=== PATIENT | female | born 1965 ===

== ENCOUNTER 2018-07-16 13:43 | Observation (INO) ==
[2018-07-16 15:16] LABS: Baso % (Auto) 0.6 % (0.0-2.0); Eos # (Auto) 0.1 th/mm3 (0.0-0.4); Hematocrit 37.7 % (35.0-46.0); Hemoglobin 12.6 gm/dL (11.6-15.3); Lymph # (Auto) 1.2 th/mm3 (1.0-4.8); Lymph % (Auto) 15.3 % (9.0-44.0); Mean Corpuscular HGB Conc 33.4 % (32.0-36.0); Mean Corpuscular Hemoglobin 32.5 pg (27.0-34.0); Mean Corpuscular Volume 97.1 fL (80.0-100.0); Mono # (Auto) 0.5 th/mm3 (0.0-0.9); Mono % (Auto) 6.7 % (0.0-8.0); Neut # (Auto) 5.9 th/mm3 (1.8-7.7); Neut % (Auto) 76.4 % (16.0-70.0); Platelet Count 256 th/mm3 (150-450); Red Blood Count 3.88 mil/mm3 (4.00-5.30); Red Cell Distribution Width 13.4 % (11.6-17.2); White Blood Count 7.7 th/mm3 (4.0-11.0)
--- NOTE | 2018-07-16 15:40 | ED ---
HPI General Chief Complaint: Psychiatric Symptoms Stated Complaint: Psych Eval Time Seen by Provider: 07/16/18 14:59 Source: patient Mode of arrival: other Limitations: no limitations History of Present Illness HPI Narrative: 52-year-old female with a histroy of ESRD on HD, HTN, Breast CA s /p mastectomy presents to the emergency department for evaluation as a Phillips act after voluntary stopping her dialysis treatment for 2 weeks. According to the Phillips Act she says she 'does not want to be a burden and does not want to live anymore'. Says it is 'her choice' and does not believe she needs to consult her specialists. Her previous PCP was Dr. Magana. Dr. Rodriguez was her intranet developer. Denies intention of actually harming herself. Denies illicit drug use. MD complaint: other Duration: constant History of same: No Relieving factors: none Exacerbating factors: none Context: significant life stressor Related Data Home Medications Medication Instructions Recorded Confirmed anastrozole 1 mg PO DAILY 07/16/18 07/16/18 Allergies Allergy/AdvReac Type Severity Reaction Status Date / Time haloperidol AdvReac Mild MUSCLE Unverified 07/01/17 14:52 SPASMS TO UNK CLASS OF ANTIPSYCHOTICS olanzapine AdvReac Mild MUSCLE Unverified 07/01/17 14:52 SPASMS TO UNK CLASS OF ANTIPSYCHOTICS quetiapine AdvReac Mild MUSCLE Unverified 07/01/17 14:52 SPASMS TO UNK CLASS OF ANTIPSYCHOTICS Review of Systems ROS: all other systems reviewed are negative [facility] Medical History Medical History Breast cancer (Acute) Dialysis patient (Acute) Renal disease (Acute) Surgical History Surgical History History of mastectomy (Acute) History of surgery on arm (Acute) Social History Social History Substance History: No History of Abuse Second Hand Smoke Exposure: Yes Smoking Status: Current every day smoker Tobacco Type: Cigarettes How Often Do You Have a Drink Containing Alcohol: Never Recent Travel in [place] within the Last 8 Weeks: No Recent Out of Country Travel within the Last 8 Weeks: No Immunization History Tetanus Immunization: Unsure Hx Influenza Vaccine This Season: Yes Exam Narrative Exam Narrative: GENERAL: WD, WN in NAD SKIN: Focused skin assessment warm/dry. HEAD: Atraumatic. Normocephalic. EYES: Pupils equal and round. No scleral icterus. No injection or drainage. ENT: No nasal bleeding or discharge. Mucous membranes pink and moist. NECK: Trachea midline. No JVD. CARDIOVASCULAR: Regular rate and rhythm. No murmur appreciated. RESPIRATORY: No accessory muscle use. Clear to auscultation. Breath sounds equal bilaterally. GASTROINTESTINAL: Abdomen soft, non-tender, nondistended. Hepatic and splenic margins not palpable. MUSCULOSKELETAL: No obvious deformities. No clubbing. No cyanosis. No edema. NEUROLOGICAL: Awake and alert. No obvious cranial nerve deficits. Motor grossly within normal limits. Normal speech. PSYCHIATRIC: Appropriate mood and affect; insight and judgment normal. Course Initial Documented Vital Signs Temperature 98.9 F 07/16/18 14:07 Pulse Rate 103 H 07/16/18 14:07 Respiratory Rate 16 07/16/18 14:07 Blood Pressure 119/88 07/16/18 14:07 Pulse Oximetry 100 07/16/18 14:07 Last Documented Vital Signs Temperature 98.1 F 07/17/18 04:35 Pulse Rate 84 07/17/18 04:35 Respiratory Rate 18 07/17/18 04:35 Blood Pressure 112/74 07/17/18 04:35 Pulse Oximetry 99 07/17/18 04:35 Medical Decision Making MDM Narrative Medical decision making narrative: 52y female presents to the ED as a BA with a reluctance to continue HD. Vital signs stable. Labs are stable. Surprisingly, her electrolytes are stable and her kidney function is stable. Pt is medically cleared to see psych. Palliative Care consult placed at the recommendation of my attending. I took over patient at 11:00 AM on 07/17/2018. Patient apparently was deemed capable of making her own decisions by the psychiatrist Dr. Grissom. Patient still somewhat altered. Apparently patient was sent back to the medical side secondary to lifting the Phillips act but patient having abnormal labs including possible UTI with what appears to be kidney dysfunction. Per the report I was given Dr. Grissom recommended that if the patient did wanted to consult with end-of-life like palliative care they could do this. At this time patient does appear to be somewhat altered. Cannot assess whether this is true psychiatric or UTI related. Because we cannot completely rule this out I do recommend admission for further evaluation and possible palliative care consult as well but mainly to treat with antibiotics and assess her kidney function as she could require dialysis. Her labs yesterday were good. Discussed case with my attending Dr Gardiner who agrees with plan. Case discussed with Dr. Chinchilla who agreed to admission to her service. Medical Screen Exam Complete: Yes Emergency Medical Condition: Yes Differential Diagnosis Differential Diagnosis: suicidal ideations, depression, adjustment disorder Lab Data Result diagrams: 07/16/18 14:08 07/16/18 14:08 Lab Results 07/16/18 07/16/18 07/16/18 Range/Units 14:08 14:08 14:08 WBC 7.7 (4.0-11.0) th/mm3 RBC 3.88 L (4.00-5.30) mil/mm3 Hgb 12.6 (11.6-15.3) gm/dL Hct 37.7 (35.0-46.0) % MCV 97.1 (80.0-100.0) fL MCH 32.5 (27.0-34.0) pg MCHC 33.4 (32.0-36.0) % RDW 13.4 (11.6-17.2) % Plt Count 256 (150-450) th/mm3 MPV 8.0 (7.0-11.0) fL Neut % (Auto) 76.4 H (16.0-70.0) % Lymph % (Auto) 15.3 (9.0-44.0) % Sutter % (Auto) 6.7 (0.0-8.0) % Eos % (Auto) 1.0 (0.0-4.0) % Baso % (Auto) 0.6 (0.0-2.0) % Neut # (Auto) 5.9 (1.8-7.7) th/mm3 Lymph # (Auto) 1.2 (1.0-4.8) th/mm3 Sutter # (Auto) 0.5 (0.0-0.9) th/mm3 Eos # (Auto) 0.1 (0.0-0.4) th/mm3 Baso # (Auto) 0.0 (0.0-0.2) th/mm3 WBC Differential . Differential Comment Auto diff final Sodium 140 (136-145) meq/L Potassium 4.6 (3.5-5.1) meq/L Chloride 110 H (98-107) meq/L Carbon Dioxide 21.0 (21.0-32.0) meq/L Anion Gap 9 (5-15) meq/L BUN 44 H (7-18) mg/dL Creatinine 4.03 H (0.50-1.00) mg/dL Estimated GFR 12 L (>89) mL/min Random Glucose 127 H (74-106) mg/dL Calcium 8.5 (8.5-10.1) mg/dL Total Bilirubin 0.2 (0.2-1.0) mg/dL AST 12 L (15-37) U/L ALT 17 (10-53) U/L Alkaline Phosphatase 172 H (45-117) U/L Total Creatine Kinase 55 (26-192) U/L Total Protein 7.2 (6.4-8.2) g/dL Albumin 3.3 L (3.4-5.0) g/dL TSH 1.130 (0.358-3.740) uIU/mL Urine Color (Yellw/Straw) Urine Clarity (Clear) Urine pH (5.0-8.5) Ur Specific [place] (1.002-1.035) Urine Protein (Neg-Trace) mg/dL Urine Glucose (UA) (Negative) mg/dL Urine Ketones (Negative) mg/dL Urine Occult Blood (Negative) Urine Nitrate (Negative) Urine Bilirubin (Negative) Urine Urobilinogen (Less than 2) mg/dL Ur Leukocyte Esterase (Negative) Urine RBC (0-3) /hpf Urine WBC (0-5) /hpf Ur Squamous Epith Cells (0-5) /hpf Amorphous Sediment (None) /hpf Urine Bacteria (None) /hpf Urine Mucus (Occasional) /lpf Micro UA Comment Ur Microscopic Review Urine Culture Comments Urine Opiates Screen (Neg) Ur Barbiturates Screen (Neg) Ur Amphetamines Screen (Neg) U Benzodiazepines Scrn (Neg) Urine Cocaine Screen (Neg) U Cannabinoids Screen (Neg) Serum Alcohol Less than 3 (0-5) mg/dL 07/16/18 07/16/18 Range/Units 15:25 15:25 WBC (4.0-11.0) th/mm3 RBC (4.00-5.30) mil/mm3 Hgb (11.6-15.3) gm/dL Hct (35.0-46.0) % MCV (80.0-100.0) fL MCH (27.0-34.0) pg MCHC (32.0-36.0) % RDW (11.6-17.2) % Plt Count (150-450) th/mm3 MPV (7.0-11.0) fL Neut % (Auto) (16.0-70.0) % Lymph % (Auto) (9.0-44.0) % Sutter % (Auto) (0.0-8.0) % Eos % (Auto) (0.0-4.0) % Baso % (Auto) (0.0-2.0) % Neut # (Auto) (1.8-7.7) th/mm3 Lymph # (Auto) (1.0-4.8) th/mm3 Sutter # (Auto) (0.0-0.9) th/mm3 Eos # (Auto) (0.0-0.4) th/mm3 Baso # (Auto) (0.0-0.2) th/mm3 WBC Differential Differential Comment Sodium (136-145) meq/L Potassium (3.5-5.1) meq/L Chloride (98-107) meq/L Carbon Dioxide (21.0-32.0) meq/L Anion Gap (5-15) meq/L BUN (7-18) mg/dL Creatinine (0.50-1.00) mg/dL Estimated GFR (>89) mL/min Random Glucose (74-106) mg/dL Calcium (8.5-10.1) mg/dL Total Bilirubin (0.2-1.0) mg/dL AST (15-37) U/L ALT (10-53) U/L Alkaline Phosphatase (45-117) U/L Total Creatine Kinase (26-192) U/L Total Protein (6.4-8.2) g/dL Albumin (3.4-5.0) g/dL TSH (0.358-3.740) uIU/mL Urine Color Yellow (Yellw/Straw) Urine Clarity Hazy H (Clear) Urine pH 6.0 (5.0-8.5) Ur Specific [place] 1.004 (1.002-1.035) Urine Protein 30 H (Neg-Trace) mg/dL Urine Glucose (UA) Negative (Negative) mg/dL Urine Ketones Negative (Negative) mg/dL Urine Occult Blood Small H (Negative) Urine Nitrate Negative (Negative) Urine Bilirubin Negative (Negative) Urine Urobilinogen Less than 2 (Less than 2) mg/dL Ur Leukocyte Esterase Small H (Negative) Urine RBC 2 (0-3) /hpf Urine WBC 6 H (0-5) /hpf Ur Squamous Epith Cells 78 (0-5) /hpf Amorphous Sediment Few H (None) /hpf Urine Bacteria Occasional H (None) /hpf Urine Mucus Few H (Occasional) /lpf Micro UA Comment Culture not ind Ur Microscopic Review Not Reportable Urine Culture Comments Culture not ind Urine Opiates Screen Neg (Neg) Ur Barbiturates Screen Neg (Neg) Ur Amphetamines Screen Neg (Neg) U Benzodiazepines Scrn Neg (Neg) Urine Cocaine Screen Neg (Neg) U Cannabinoids Screen Neg (Neg) Serum Alcohol (0-5) mg/dL Discharge Plan Discharge Disposition Patient Disposition: 30 Still Patient Discharge Condition Condition: Stable Discharge Details Diagnosis: Altered mental status, Suicidal ideation, Adjustment disorder, UTI (urinary tract infection), End-stage renal disease (ESRD) Physicians Team ED Provider: Marvin Gross ED Midlevel Provider: Geovany Garner Primary Care Provider: Faisal Prakash Attending Provider: Demi Watts Other Providers: Priya Cortez Discharge Interventions Interventions: Vital Signs Last Done: 07/17/18 04:35 Status ED Status: Admitted Observation Patient
[2018-07-16 15:45] LABS: Alanine Aminotransferase 17 U/L (10-53); Albumin 3.3 g/dL (3.4-5.0); Anion Gap 9 meq/L (5-15); Aspartate Aminotransferase 12 U/L (15-37); Calcium 8.5 mg/dL (8.5-10.1); Chloride 110 meq/L (98-107); Glomerular Filtration Rate 12 mL/min (>89); Glucose,Random 127 mg/dL (74-106); Potassium 4.6 meq/L (3.5-5.1); Sodium 140 meq/L (136-145)
[2018-07-16 15:55] LABS: Amphetamine Screen,Urine Neg (Neg); Barbiturate Screen,Urine Neg (Neg); Cannabinoid Screen,Urine Neg (Neg); Cocaine Screen,Urine Neg (Neg)
[2018-07-16 15:57] LABS: Amorphous Sediment,Urine Few /hpf; Bacteria,Urine Occasional /hpf; Bilirubin,Urine Negative (Negative); Color,Urine Yellow (Yellw/Straw); Glucose,Urine (UA) Negative (Negative); Leukocyte Esterase,Urine Small (Negative); Mucus,Urine Few /lpf (Occasional); Nitrite,Urine Negative (Negative); Specific Gravity,Urine 1.004 (1.002-1.035); Squamous Epithelial Cell,Urine 78 /hpf (0-5)
[2018-07-16 15:58] LABS: Alkaline Phosphatase 172 U/L (45-117); Blood Urea Nitrogen 44 mg/dL (7-18); Total Protein 7.2 g/dL (6.4-8.2)
[2018-07-16 15:58] LABS: Clarity,Urine Hazy (Clear); Opiate Screen,Urine Neg (Neg)
--- NOTE | 2018-07-17 12:48 | P.CONPSY ---
Provisional Diagnosis Admission Date: July 17, 2018 12:12 [place] I.: Adjustment disorder with depressed mood, schizoaffective disorder, anxiety, [place] II.: Borderline personality disorder [place] III.: Hypertension, ESRD on hemodialysis, History of Present Illness Service: ER Primary Care Provider: Faisal Prakash MD History of Present Illness: The patient is a 52-year-old woman, domiciled with a friend in [place], unemployed, supported by [facility], with an extensive psychiatric history of schizoaffective disorder, borderline personality disorder, depression, anxiety, multiple psychiatric hospitalizations, multiple suicidal attempts, poor impulse control, history of self injury behavior, poor coping skills, she has been hospitalized in our psychiatric unit multiple times in the past, documentation review, last time was in 2011, she is on Seroquel 400 mg at bedtime prescribed by PCP, with a medical histroy of ESRD on HD, HTN, Breast CA s/p mastectomy presents to the emergency department for evaluation as a Phillips act after voluntary stopping her dialysis treatment for 2 weeks. According to the Phillips Act she says she 'does not want to be a burden and does not want to live anymore '. Says it is 'her choice' and does not believe she needs to consult her specialists. Her previous PCP was Dr. Magana. Dr. Rodriguez was her software validation technician. Denies intention of actually harming herself. Denies illicit drug use. On psychiatric evaluation today the patient is found calm, cooperative, a little bit irritable. The patient reports that she is here "because my sister and my friends do not understand that I deserve to live with dignity". She says that they had an argument last night the argument she became quite agitated, she broke a glass of the floor "I did not try to commit suicide, I was just upset". The patient reported that she has decided to stop hemodialysis for many reasons. #1 because she understands that she has an opportunity to live "a decent amount of months", without the dialysis. She also says that she refuses to continue treatment in which she loses the control of herself. She says that every time that she has to go to dialysis she feels very depressed and stressed "and I do not think I deserve that". Another reason to refuse dialysis is because she had a very good friend as well and her father on dialysis and she says that she knows very well "how mutilating this is for me". She says that she does not want to , she does not want to commit suicide, she just wanted to have a better life. The patient seems to understand the seriousness of her medical conditions. She is fully oriented 3, no fluctuation of consciousness, no attention deficit at the moment. The patient is logical, coherent and relevant. I spoke with her sister Marva. She says that the main reason the patient was Phillips acted is because she was quite aggressive last night and they thought that she was psychotic. She expresses that her sister is a very impulsive person who can cause damage to herself and others. She expresses disagreement that if her sister does not want dialysis she should not have dialysis. However, she clarifies that given her difficult personality she is not willing to take her back in her house apparently her friend is the same opinion. Patient denies the use of alcohol and illegal drugs. She has family psychiatric history of schizophrenia and his brother, who is institutionalized The patient was born and raised in [place], she was raised by her parents, has been living in [place] since the age of [age] years old, she is , she lives with a friend in [place], she is unemployed, supported by [employer] Review of Systems All other systems reviewed negative except as stated in [facility]PI [facility] - History History Provided By: Patient - Medical History Medical History: Medical History (Last Updated 07/16/18 @ 13:56 by Alejandra Poe) Breast cancer Dialysis patient Renal disease - Surgical History Surgical History: Surgical History (Last Updated 07/16/18 @ 13:57 by Alejandra Poe) History of mastectomy History of surgery on arm - Tobacco History Second Hand Smoke Exposure: Yes Tobacco Use In Past 30 Days: Yes (1PPD) Smoking Status: Current every day smoker Tobacco Type: Cigarettes - Alcohol History How Often Do You Have a Drink Containing Alcohol: Never - Substance Use History Substance History: No History of Abuse - Travel History Recent Travel in the [place] Within the Last 8 Weeks: No Recent Travel Out of the Country Within the Last 8 Weeks: No - Immunization History Tetanus Immunization: Unsure Hx Influenza Vaccine This Season: Yes Medications and Allergies Allergies Allergy/AdvReac Type Severity Reaction Status Date / Time haloperidol AdvReac Mild MUSCLE Unverified 07/01/17 14:52 SPASMS TO UNK CLASS OF ANTIPSYCHOTICS olanzapine AdvReac Mild MUSCLE Unverified 07/01/17 14:52 SPASMS TO UNK CLASS OF ANTIPSYCHOTICS quetiapine AdvReac Mild MUSCLE Unverified 07/01/17 14:52 SPASMS TO UNK CLASS OF ANTIPSYCHOTICS Home Medications Medication Instructions Recorded Confirmed Type anastrozole 1 mg PO DAILY 07/16/18 07/16/18 History Exam Vital signs: Vital Signs 07/16/18 14:07 07/16/18 18:07 07/16/18 22:38 Temperature 98.9 F Pulse Rate 103 H 90 91 H Respiratory Rate 16 18 16 Blood Pressure 119/88 120/87 131/88 Pulse Oximetry 100 99 99 07/17/18 04:35 Temperature 98.1 F Pulse Rate 84 Respiratory Rate 18 Blood Pressure 112/74 Pulse Oximetry 99 Intake & Output 07/16/18 07/17/18 07/17/18 18:59 06:59 18:59 Weight 65.317 kg Mental Status Examination Appearance: Appropriate Consciousness: Alert Orientation: x4 Motor Activity: Normal gait Speech: Unremarkable Language: Adequate Fund of Knowledge: Adequate Attention and Concentration: Adequate Memory: Unremarkable Mood: Appropriate Affect: Appropriate Thought Process & Associations: Intact Thought Content: Appropriate Hallucination Type: None Delusion Type: None Suicidal Ideation: No Suicidal Plan: No Suicidal Intention: No Homicidal Ideation: No Homicidal Plan: No Homicidal Intention: No Insight: Adequate Judgment: Adequate Assessment and Plan - Plan Plan: Estimated LOS: [] days At the moment of the psychiatric evaluation the patient does not present any serious, concerning, acute neuropsychiatric symptoms or require an immediate psychiatric intervention. The patient denies suicidal and homicidal ideation, she denies visual and auditory hallucinations. The patient is oriented 3, logical, coherent and relevant. The patient seems to have a very good understanding and appreciation of medical condition and she has a rational unclear choice of not continuing hemodialysis. Is important to clarify that the patient has full decision-making capacity to refuse treatment at this moment. The other issue that is important to clarify is that stopping hemodialysis does not make the patient suicidal and the patient has the right to refuse this procedure, as long as he has full decision-making capacity. Her aggressive behavior as well as difficulties with family member secondary to her well described borderline personality disorder. She does not meet criteria for involuntary psychiatric admission. Brief supportive psychotherapy, motivation and psychoeducation provided continue Seroquel 400 mg at bedtime as per PCP. Consult palliative care to help the patient with eligibility to hospice. Justification for Continued Inpatient Stay: No admission is indicated.
[2018-07-17] MEDS ORDERED: Bisacodyl 10 MG Supp RECTAL PRN (13:47)
--- NOTE | 2018-07-17 13:51 | P.HP ---
History of Present Illness Primary Care Physician: Faisal Prakash MD History of Present Illness: 52-year-old female with a history of ESRD on HD, HTN, Breast CA s/p mastectomy presents to the emergency department for evaluation as a Phillips act after voluntary stopping her dialysis treatment for 2 weeks. According to the Phillips Act she says she 'does not want to be a burden and does not want to live anymore '. Says it is 'her choice' and does not believe she needs to consult her specialists. Her previous PCP was Dr. Magana. Dr. Rodriguez was her regional ehs manager. Denies intention of actually harming herself. Denies illicit drug use. Psych has seen the patient and patient is capable to make her own decisions. Patient is however found with decreased mentation and poss UTI . Started on IV abx urine cx pending. Consult also palliative care for goals of care. Patient requests updated DNR form , done at bedside, also with Anneliese from palliative care. Patient says she can walk. Review of Systems All other systems reviewed negative except as stated in HPI PMFSH - History History Provided By: Patient - Medical History Medical History: Medical History (Last Reviewed 07/17/18 @ 16:09 by Demi Watts MD) Breast cancer Dialysis patient Renal disease - Surgical History Surgical History: Surgical History (Last Reviewed 07/17/18 @ 16:09 by Demi Watts MD) History of mastectomy History of surgery on arm - Family History Family History: Family History (Last Updated 07/17/18 @ 16:50 by Demi Watts MD) Mother Diabetes - Tobacco History Second Hand Smoke Exposure: Yes Tobacco Use In Past 30 Days: Yes (1PPD) Smoking Status: Current every day smoker Tobacco Type: Cigarettes - Alcohol History How Often Do You Have a Drink Containing Alcohol: Never - Substance Use History Substance History: No History of Abuse - Travel History Recent Travel in the [place] Within the Last 8 Weeks: No Recent Travel Out of the Country Within the Last 8 Weeks: No - Immunization History Tetanus Immunization: Unsure Hx Influenza Vaccine This Season: Yes Medications and Allergies Active Medications: Active Medications Al Hydroxide/Mg Hydroxide (Milk Of Chaya Liq) 30 ml PO Q12H PRN PRN Reason: Mild Constipation Bisacodyl (Dulcolax Supp) 10 mg RECTAL DAILY PRN PRN Reason: SEVERE CONSITIPATION Enoxaparin Sodium (Lovenox Inj) 30 mg SQ Q24H [facility] Ceftriaxone Sodium 1,000 mg/ (Sodium Chloride) 100 mls @ 200 mls/hr IV.SIG Q24H AMARI Lactulose (Lactulose Liq) 30 ml PO DAILY PRN PRN Reason: SEVERE CONSITIPATION Metoclopramide HCl (Reglan Inj) 5 mg IV.PUSH Q6HR PRN; Protocol PRN Reason: NAUSEA OR VOMITING Senna/Docusate Sodium (Hallie-Colace) 1 tab PO BID [facility] Sennosides (Senokot) 17.2 mg PO Q12H PRN PRN Reason: Moderate Constipation Allergies Allergy/AdvReac Type Severity Reaction Status Date / Time haloperidol AdvReac Mild MUSCLE Unverified 07/01/17 14:52 SPASMS TO UNK CLASS OF ANTIPSYCHOTICS olanzapine AdvReac Mild MUSCLE Unverified 07/01/17 14:52 SPASMS TO UNK CLASS OF ANTIPSYCHOTICS quetiapine AdvReac Mild MUSCLE Unverified 07/01/17 14:52 SPASMS TO UNK CLASS OF ANTIPSYCHOTICS Home Medications Medication Instructions Recorded Confirmed Type anastrozole 1 mg PO DAILY 07/16/18 07/16/18 History Exam Vital signs: Vital Signs 07/16/18 14:07 07/16/18 18:07 07/16/18 22:38 Temperature 98.9 F Pulse Rate 103 H 90 91 H Respiratory Rate 16 18 16 Blood Pressure 119/88 120/87 131/88 Pulse Oximetry 100 99 99 07/17/18 04:35 07/17/18 13:31 Temperature 98.1 F Pulse Rate 84 88 Respiratory Rate 18 16 Blood Pressure 112/74 166/104 H Pulse Oximetry 99 98 Intake & Output 07/16/18 07/17/18 07/17/18 18:59 06:59 18:59 Weight 65.317 kg Narrative: GENERAL: Pleasantly confused 52 yo female, in bed appears in nad. SKIN: Warm and dry. HEAD: Atraumatic. Normocephalic. EYES: Pupils equal and round. No scleral icterus. No injection or drainage. ENT: No nasal bleeding or discharge. Mucous membranes pink and moist. NECK: Trachea midline. No JVD. CARDIOVASCULAR: Regular rate and rhythm. RESPIRATORY: No accessory muscle use. Clear to auscultation. Breath sounds equal bilaterally. GASTROINTESTINAL: Abdomen soft, non-tender, nondistended. Hepatic and splenic margins not palpable. MUSCULOSKELETAL: Extremities without clubbing, cyanosis, or edema. No obvious deformities. NEUROLOGICAL: Awake and alert. No obvious cranial nerve deficits. Motor grossly within normal limits. Five out of 5 muscle strength in the arms and legs. Normal speech. PSYCHIATRIC: Appropriate mood and affect; insight and judgment normal. Results - Labs CBC & Chem 7: 07/16/18 14:08 07/17/18 13:59 Labs: Laboratory Results - last 24 hr 07/16/18 07/16/18 07/16/18 14:08 14:08 14:08 WBC 7.7 RBC 3.88 L Hgb 12.6 Hct 37.7 MCV 97.1 MCH 32.5 MCHC 33.4 RDW 13.4 Plt Count 256 MPV 8.0 Neut % (Auto) 76.4 H Lymph % (Auto) 15.3 [place] % (Auto) 6.7 Eos % (Auto) 1.0 Baso % (Auto) 0.6 Neut # (Auto) 5.9 Lymph # (Auto) 1.2 [place] # (Auto) 0.5 Eos # (Auto) 0.1 Baso # (Auto) 0.0 WBC Differential . Differential Comment Auto diff final Sodium 140 Potassium 4.6 Chloride 110 H Carbon Dioxide 21.0 Anion Gap 9 BUN 44 H Creatinine 4.03 H Estimated GFR 12 L Random Glucose 127 H Calcium 8.5 Total Bilirubin 0.2 AST 12 L ALT 17 Alkaline Phosphatase 172 H Total Creatine Kinase 55 Total Protein 7.2 Albumin 3.3 L TSH 1.130 Urine Color Urine Clarity Urine pH Ur Specific Lares Urine Protein Urine Glucose (UA) Urine Ketones Urine Occult Blood Urine Nitrate Urine Bilirubin Urine Urobilinogen Ur Leukocyte Esterase Urine RBC Urine WBC Ur Squamous Epith Cells Amorphous Sediment Urine Bacteria Urine Mucus Micro UA Comment Ur Microscopic Review Urine Culture Comments Urine Opiates Screen Ur Barbiturates Screen Ur Amphetamines Screen U Benzodiazepines Scrn Urine Cocaine Screen U Cannabinoids Screen Serum Alcohol Less than 3 07/16/18 07/16/18 15:25 15:25 WBC RBC Hgb Hct MCV MCH MCHC RDW Plt Count MPV Neut % (Auto) Lymph % (Auto) [place] % (Auto) Eos % (Auto) Baso % (Auto) Neut # (Auto) Lymph # (Auto) [place] # (Auto) Eos # (Auto) Baso # (Auto) WBC Differential Differential Comment Sodium Potassium Chloride Carbon Dioxide Anion Gap BUN Creatinine Estimated GFR Random Glucose Calcium Total Bilirubin AST ALT Alkaline Phosphatase Total Creatine Kinase Total Protein Albumin TSH Urine Color Yellow Urine Clarity Hazy H Urine pH 6.0 Ur Specific Lares 1.004 Urine Protein 30 H Urine Glucose (UA) Negative Urine Ketones Negative Urine Occult Blood Small H Urine Nitrate Negative Urine Bilirubin Negative Urine Urobilinogen Less than 2 Ur Leukocyte Esterase Small H Urine RBC 2 Urine WBC 6 H Ur Squamous Epith Cells 78 Amorphous Sediment Few H Urine Bacteria Occasional H Urine Mucus Few H Micro UA Comment Culture not ind Ur Microscopic Review Not Reportable Urine Culture Comments Culture not ind Urine Opiates Screen Neg Ur Barbiturates Screen Neg Ur Amphetamines Screen Neg U Benzodiazepines Scrn Neg Urine Cocaine Screen Neg U Cannabinoids Screen Neg Serum Alcohol Caprini VTE Risk Assessment Caprini VTE Risk Assessment: Moderate/High Risk (score >= 2) Caprini Risk Assessment Model: Point Value = 1 Point Value = 2 Point Value = 3 Point Value = 5 Age 41-60 Minor surgery BMI > 25 kg/m2 Swollen legs Varicose veins or History of unexplained or recurrent spontaneous Oral contraceptives or hormone replacement Sepsis (< 1 month) Serious lung disease, including pneumonia (< 1 month) Abnormal pulmonary function Acute myocardial infarction Congestive heart failure (< 1 month) History of inflammatory bowel disease Medical patient at bed rest Age 61-74 Arthroscopic surgery Major open surgery (> 45 min) Laparoscopic surgery (> 45 min) Malignancy Confined to bed (> 72 hours) Immobilizing plaster cast Central venous access Age >= 75 History of VTE Family history of VTE Factor V Leiden Prothrombin [id number] Lupus anticoagulant Anticardiolipin antibodies Elevated serum homocysteine Heparin-induced thrombocytopenia Other congenital or acquired thrombophilia Stroke (< 1 month) Elective arthroplasty Hip, pelvis, or leg fracture Acute spinal cord injury (< 1 month) Prophylaxis Regimen: Total Risk Factor Score Risk Level Prophylaxis Regimen 0-1 Low Early ambulation 2 Moderate Order ONE of the following: *Sequential Compression Device (SCD) *Heparin 5000 units SQ BID 3-4 Higher Order ONE of the following medications: *Heparin 5000 units SQ TID *Enoxaparin/Lovenox 40 mg SQ daily (WT < 150 kg, CrCl > 30 mL/min) *Enoxaparin/Lovenox 30 mg SQ daily (WT < 150 kg, CrCl > 10-29 mL/min) *Enoxaparin/Lovenox 30 mg SQ BID (WT < 150 kg, CrCl > 30 mL/min) AND/OR *Sequential Compression Device (SCD) 5 or more Highest Order ONE of the following medications: *Heparin 5000 units SQ TID (Preferred with Epidurals) *Enoxaparin/Lovenox 40 mg SQ daily (WT < 150 kg, CrCl > 30 mL/min) *Enoxaparin/Lovenox 30 mg SQ daily (WT < 150 kg, CrCl > 10-29 mL/min) *Enoxaparin/Lovenox 30 mg SQ BID (WT < 150 kg, CrCl > 30 mL/min) AND *Sequential Compression Device (SCD) Assessment and Plan - Plan 52-year-old female with a history of ESRD on HD, HTN, Breast CA s/p mastectomy presents to the emergency department for evaluation as a Phillips act after voluntary stopping her dialysis treatment for 2 weeks. Psych has seen the patient and patient is capable to make her own decisions. Patient is however found with decreased mentation and poss UTI . Started on IV abx urine cx pending. Consult also palliative care for goals of care. Acute encephalopathy mild. poss related to UTI Poss UTI U cx pending On rocephyn IV abx Monitor urine cx ESRD on HD. Patient has been refusing HD for 2 weeks Palliative care consult for goals of care Consider nephrology consult if patient agrees to HD H/o Breast CA s/p mastectomy DVT ppx lovenox per renal dose Code status DNR Case management consulted for DC as need Patient might go home with hospice
[2018-07-17 15:32] LABS: Calcium 9.3 mg/dL (8.5-10.1); Carbon Dioxide 20.4 meq/L (21.0-32.0)
[2018-07-17 15:40] LABS: Potassium 5.3 meq/L (3.5-5.1)
--- NOTE | 2018-07-17 17:39 | P.CONPAL ---
Consult Service: Palliative Care Requesting Physician: Estrellita Waldron Reason for Consult: a. To assist with evaluation and management of symptoms including: insomnia. b. To assist medical decision maker(s) with: better understanding of current medical conditions; weighing benefits/burdens of medical treatment options; making medical treatment decisions. Primary Care Provider: Faisal Prakash MD History of Present Illness History of Present Illness: Ms. Wakefield is a 52 year old female with past medical history of ESRD on HD since August 2017 stopped 2 weeks ago (Dr. Tran), hypertension, breast cancer s/p mastectomy. She presented to [facility] emergency department as Phillips act after voluntary stopping hemodialysis treatment for 2 weeks. Patient was seen and evaluated by Dr. Mcgowan, psychiatry his evaluation: "At the moment of the psychiatric evaluation the patient does not present any serious, concerning, acute neuropsychiatric symptoms or require an immediate psychiatric intervention. The patient denies suicidal and homicidal ideation, she denies visual and auditory hallucinations. The patient is oriented 3, logical, coherent and relevant. The patient seems to have a very good understanding and appreciation of medical condition and she has a rational unclear choice of not continuing hemodialysis. Is important to clarify that the patient has full decision-making capacity to refuse treatment at this moment. The other issue that is important to clarify is that stopping hemodialysis does not make the patient suicidal and the patient has the right to refuse this procedure, as long as he has full decision-making capacity. Her aggressive behavior as well as difficulties with family member secondary to her well described borderline personality disorder. She does not meet criteria for involuntary psychiatric admission. Brief supportive psychotherapy, motivation and psychoeducation provided continue Seroquel 400 mg at bedtime as per PCP. Consult palliative care to help the patient with eligibility to hospice." Palliative care was consulted to assist with further clarification of medical treatment goals. Patient is seen and examined in the emergency department. She indicates she has a living will in which she documented prior to the start of dialysis that she would not want life prolonging measures or procedures including dialysis. She tells me she started dialysis because her family wanted her to try. She initially told them she would try for 3 months, however continued until 2 weeks ago for them. She hoped it would make her feel better and stronger which it hasn 't. She doesn't want to live like this. She understands she will . She does not have suicidal thoughts. She states "it is my right to stop treatment." She has elected DNR and signed [place] DNR order stating she wants too peacefully when it is her time. She would like to meet with hospice. Hospice consulted. Function/Cognitive Trajectory: Patient continues to care for herself at home. Review of Systems Constitutional: Reports fatigue, Reports lack of energy Gastrointestinal: Reports constipation Psychiatric: Reports anxiety, Reports depression PMFSH - History History Provided By: Patient - Medical History Medical History: Medical History (Last Updated 07/17/18 @ 17:35 by Loretta Abbott) Borderline personality disorder Breast cancer Dialysis patient Hypertension Renal disease - Surgical History Surgical History: Surgical History (Last Reviewed 07/17/18 @ 17:32 by Loretta Abbott) History of mastectomy History of surgery on arm - Family History Family History: Family History (Last Updated 07/17/18 @ 16:50 by Demi Watts MD) Mother Diabetes - Tobacco History Second Hand Smoke Exposure: Yes Tobacco Use In Past 30 Days: Yes (1PPD) Smoking Status: Current every day smoker Tobacco Type: Cigarettes - Alcohol History How Often Do You Have a Drink Containing Alcohol: Never - Substance Use History Substance History: No History of Abuse - Travel History Recent Travel in the [place] Within the Last 8 Weeks: No Recent Travel Out of the Country Within the Last 8 Weeks: No - Immunization History Tetanus Immunization: Unsure Hx Influenza Vaccine This Season: Yes Medications and Allergies Active Medications: Active Medications Al Hydroxide/Mg Hydroxide (Milk Of Magnesia Liq) 30 ml PO Q12H PRN PRN Reason: Mild Constipation Bisacodyl (Dulcolax Supp) 10 mg RECTAL DAILY PRN PRN Reason: SEVERE CONSITIPATION Enoxaparin Sodium (Lovenox Inj) 30 mg SQ Q24H AMARI Ceftriaxone Sodium 1,000 mg/ (Sodium Chloride) 100 mls @ 200 mls/hr IV.SIG Q24H AMARI Lactulose (Lactulose Liq) 30 ml PO DAILY PRN PRN Reason: SEVERE CONSITIPATION Metoclopramide HCl (Reglan Inj) 5 mg IV.PUSH Q6HR PRN; Protocol PRN Reason: NAUSEA OR VOMITING Senna/Docusate Sodium (Hallie-Colace) 1 tab PO BID AMARI Sennosides (Senokot) 17.2 mg PO Q12H PRN PRN Reason: Moderate Constipation Allergies Allergy/AdvReac Type Severity Reaction Status Date / Time haloperidol AdvReac Mild MUSCLE Unverified 07/01/17 14:52 SPASMS TO UNK CLASS OF ANTIPSYCHOTICS olanzapine AdvReac Mild MUSCLE Unverified 07/01/17 14:52 SPASMS TO UNK CLASS OF ANTIPSYCHOTICS quetiapine AdvReac Mild MUSCLE Unverified 07/01/17 14:52 SPASMS TO UNK CLASS OF ANTIPSYCHOTICS Home Medications Medication Instructions Recorded Confirmed Type anastrozole 1 mg PO DAILY 07/16/18 07/16/18 History Advance Directives Living Will: Yes (copy requested) Healthcare Surrogate: No (verbalizes she would want her sister, Concha. ) Power of Communications Technologist: No Today's verbally stated goals: Elected [place] DNR and hospice consult. She does not want hemodialysis or other life prolonging measures. Ethical and Legal Issues: No known concerns at this time. Physical Exam Vital Signs: Vital Signs - 24 hr 07/16/18 18:07 07/16/18 22:38 07/17/18 04:35 Temperature 98.1 F Pulse Rate 90 91 H 84 Respiratory Rate 18 16 18 Blood Pressure 120/87 131/88 112/74 Pulse Oximetry 99 99 99 07/17/18 13:31 07/17/18 16:00 Temperature 98.6 F Pulse Rate 88 92 H Respiratory Rate 16 18 Blood Pressure 166/104 H 135/92 H Pulse Oximetry 98 98 I&O: Intake & Output 07/15/18 07/16/18 07/17/18 07/18/18 06:59 06:59 06:59 06:59 Intake Total 100 / 100 Balance 100 / 100 Weight 65.317 kg 65.529 kg Physical Exam: CONSTITUTIONAL/GENERAL: This is an adequately nourished, well kept patient. In no apparent distress. TUBES/LINES/DRAINS:PIV SKIN: No jaundice, rashes, or lesions. Ecchymoses on upper extremities. No wounds seen anteriorly. Skin temperature appropriate. Not diaphoretic. HEAD: Atraumatic. Normocephalic. EYES: Pupils equal and round and reactive. Extraocular motions intact. No scleral icterus. No injection or drainage. Fundi not examined. ENT: Hearing grossly normal. Nose without bleeding or purulent drainage. Throat without visible erythema, exudates, masses, or lesions. NECK: Trachea midline. CARDIOVASCULAR: Regular rate and rhythm without murmurs, gallops, or rubs. No JVD. Peripheral pulses symmetric. RESPIRATORY/CHEST: Symmetric, unlabored respirations. Clear to auscultation. Breath sounds equal bilaterally. No wheezes, rales, or rhonchi. GASTROINTESTINAL: Abdomen soft, non-tender, nondistended. No hepato-splenomegaly , or palpable masses. No guarding. Bowel sounds present. GENITOURINARY: Without palpable bladder distension. MUSCULOSKELETAL: Extremities without clubbing, cyanosis, or edema. No joint tenderness or effusion noted. No calf tenderness. No mottling or clubbing. LYMPHATICS: No palpable cervical or supraclavicular adenopathy. NEUROLOGICAL: Awake and alert. Motor and sensory grossly within normal limits. Follows commands. Cognitively sharp. Moves all extremities. PSYCHIATRIC: Appropriate mood and affect. Has good insight and judgement. Diagnostic Tests Laboratory: Laboratory Results - last 72 hr 07/16/18 07/16/18 07/16/18 14:08 14:08 14:08 WBC 7.7 RBC 3.88 L Hgb 12.6 Hct 37.7 MCV 97.1 MCH 32.5 MCHC 33.4 RDW 13.4 Plt Count 256 MPV 8.0 Neut % (Auto) 76.4 H Lymph % (Auto) 15.3 [place] % (Auto) 6.7 Eos % (Auto) 1.0 Baso % (Auto) 0.6 Neut # (Auto) 5.9 Lymph # (Auto) 1.2 [place] # (Auto) 0.5 Eos # (Auto) 0.1 Baso # (Auto) 0.0 WBC Differential . Differential Comment Auto diff final Sodium 140 Potassium 4.6 Chloride 110 H Carbon Dioxide 21.0 Anion Gap 9 BUN 44 H Creatinine 4.03 H Estimated GFR 12 L Random Glucose 127 H Calcium 8.5 Total Bilirubin 0.2 AST 12 L ALT 17 Alkaline Phosphatase 172 H Total Creatine Kinase 55 Total Protein 7.2 Albumin 3.3 L TSH 1.130 Urine Color Urine Clarity Urine pH Ur Specific [place] Urine Protein Urine Glucose (UA) Urine Ketones Urine Occult Blood Urine Nitrate Urine Bilirubin Urine Urobilinogen Ur Leukocyte Esterase Urine RBC Urine WBC Ur Squamous Epith Cells Amorphous Sediment Urine Bacteria Urine Mucus Micro UA Comment Ur Microscopic Review Urine Culture Comments Urine Opiates Screen Ur Barbiturates Screen Ur Amphetamines Screen U Benzodiazepines Scrn Urine Cocaine Screen U Cannabinoids Screen Serum Alcohol Less than 3 07/16/18 07/16/18 07/17/18 15:25 15:25 13:59 WBC RBC Hgb Hct MCV MCH MCHC RDW Plt Count MPV Neut % (Auto) Lymph % (Auto) [place] % (Auto) Eos % (Auto) Baso % (Auto) Neut # (Auto) Lymph # (Auto) [place] # (Auto) Eos # (Auto) Baso # (Auto) WBC Differential Differential Comment Sodium 144 Potassium 5.3 H Chloride 112 H Carbon Dioxide 20.4 L Anion Gap 12 BUN 45 H Creatinine 4.05 H Estimated GFR 12 L Random Glucose 102 Calcium 9.3 D Total Bilirubin AST ALT Alkaline Phosphatase Total Creatine Kinase Total Protein Albumin TSH Urine Color Yellow Urine Clarity Hazy H Urine pH 6.0 Ur Specific [place] 1.004 Urine Protein 30 H Urine Glucose (UA) Negative Urine Ketones Negative Urine Occult Blood Small H Urine Nitrate Negative Urine Bilirubin Negative Urine Urobilinogen Less than 2 Ur Leukocyte Esterase Small H Urine RBC 2 Urine WBC 6 H Ur Squamous Epith Cells 78 Amorphous Sediment Few H Urine Bacteria Occasional H Urine Mucus Few H Micro UA Comment Culture not ind Ur Microscopic Review Not Reportable Urine Culture Comments Culture not ind Urine Opiates Screen Neg Ur Barbiturates Screen Neg Ur Amphetamines Screen Neg U Benzodiazepines Scrn Neg Urine Cocaine Screen Neg U Cannabinoids Screen Neg Serum Alcohol Result Diagrams: 07/16/18 14:08 07/17/18 13:59 Patient/Family Conference Present at Family Conference: Met with patient at bedside for 45 minutes. Family Conference Time: 45 Family Conference Location: Bedside Issues Discussed: * Palliative care role, purpose, approach * Additional medical, psychosocial, and spiritual history * Patients general health, functional status, and cognitive changes in the months leading up to the current hospitalization * Patient/family understanding of the current medical problems * Patient/family understanding of prognosis * Patients goals of care as best understood from advance directives and/or conversations and/or values * Current medical treatment options and benefits/burdens of those options * Likely scenarios comparing ongoing aggressive care with a transition to comfort measures only * Questions answered to the best of my ability * Palliative care contact information provided Assessment and Plan - Disease Oriented Problem List (1) Suicidal ideation (2) Adjustment disorder (3) Altered mental status (4) UTI (urinary tract infection) (5) End-stage renal disease (ESRD) - Symptom Scale (1) Insomnia 0-10 Scale: Unable to quantify Pertinent Non-Medical Issues: Psychosocial: . No children. Lives with a friend. Has a sister, Marva. Spiritual: None. Legal: Has written living will at home, copy requested. Patient was deemed capacitated by Dr. Mcgowan to make her own health care decisions. Ethical issues impacting care: No known concerns at this time. Important Contacts: * Concha Brewer, sister: [phone] Prognosis: Patient with ESRD on hemodialysis which she elected to DC about 2 weeks ago. Life expectancy limited should disease run its expected course. Hospice appropriate. Code Status: No Code DNR ([place] DNR order signed by patient and Dr. Watts.) Plan: * Has written living will at home, copy requested. Patient was deemed capacitated by Dr. Mcgowan to make her own health care decisions. * NO CODE - [place] DNR completed on chart signed by patient and Dr. Mcgowan. * Goals: Patient is seen and examined in the emergency department. She indicates she has a living will in which she documented prior to the start of dialysis that she would not want life prolonging measures or procedures including dialysis. She tells me she started dialysis because her family wanted her to try. She initially told them she would try for 3 months, however continued until 2 weeks ago for them. She hoped it would make her feel better and stronger which it hasn't. She doesn't want to live like this. She understands she will . She does not have suicidal thoughts. She states "it is my right to stop treatment." She has elected DNR and signed [place] DNR order stating she wants too peacefully when it is her time. She would like to meet with hospice. * Hospice consulted. * Patient verbalizes concern for going back to her current living situation in the coming days, she wants to be sure the medical team is aware. * Discussed with Dr. Watts and nursing staff. * SYMPTOMS: Insomnia: Dr. Mcgowan ordered Seroquel 400mg PO at HS. Will monitor. No new medication recommendations at this time. * Palliative care number provided. * Palliative care will continue to follow to assist with smptom managment and clarification of medical treatment goals as needed. Appreciation Thank you for the opportunity to participate in the care of Shelby Wakefield. Attestation Attestation: To help prompt me to consider important information that might be impacting today's encounter and assessment, information from prior notes written by myself or my colleagues may have been "brought forward" into today's note. My signature on this note, however, is an attestation that I personally performed the exam, history, and/or decision-making noted today, and, unless otherwise indicated, the interactions with patient, family, and staff as well as the review of records all occurred today. I also attest that the listed assessment and stated plan reflect my best clinical judgment today based on the combination of historical information, prior notes, and today's exam/ interactions. When time spent is documented, it refers only to time spent today by the signer, or if indicated, combined time spent today by collaborating physician/nurse practitioner.
[2018-07-17] MEDS ORDERED: Melatonin 5 MG Tablet PO PRN (20:05)
[2018-07-17] MEDS: Enoxaparin Inj 30 MG/0.3 ML Syringe SQ SCH (20:38)
[2018-07-17] MEDS: Senna/Docusate Sodium 8.6/50 MG Tablet PO SCH (20:48)
--- NOTE | 2018-07-18 09:00 | P.PN ---
Subjective Interval history: Follow-up visit end-stage renal disease, refusing dialysis. Patient seen and examined today. Tearful. States that she does not want any dialysis treatment but concerned about she does not have a home to go to. States that "can I stay at the hospital?" States that friend is overwhelmed and unable to take her in. States she feels better without dialysis. Denies pain and discomfort. Denies SOB/ dyspnea. Physical Exam Vital signs: Vital Signs 07/17/18 13:31 07/17/18 16:00 07/17/18 19:37 Temperature 98.6 F 98.7 F Pulse Rate 88 92 H 92 H Respiratory Rate 16 18 20 Blood Pressure 166/104 H 135/92 H 156/97 H Pulse Oximetry 98 98 98 07/17/18 20:09 07/17/18 23:06 07/17/18 23:24 Temperature 99.9 F H 97.9 F 98.1 F Pulse Rate 95 H 81 86 Respiratory Rate 20 18 20 Blood Pressure 155/100 H 133/102 H 128/69 Pulse Oximetry 95 96 99 07/18/18 04:48 07/18/18 07:45 Temperature 98.0 F 98.0 F Pulse Rate 87 93 H Respiratory Rate 18 14 Blood Pressure 121/57 L 154/96 H Pulse Oximetry 98 100 Intake & Output 07/17/18 07/18/18 07/18/18 18:59 06:59 18:59 Intake Total 100 / 100 1020 / 1020 Balance 100 / 100 1020 / 1020 Weight 65.529 kg Intake: IV 100 / 100 Rocephin Inj 1,000 MG In NS Inj 100 / 100 100 ML @ 200 mls/hr IV.SIG ONCE ONE Rx#:[id number] Oral 1020 / 1020 Other: # Voids 2 Weight On Admission 65.317 kg Narrative: GENERAL: This is a well-nourished, well-developed patient, in no apparent distress. SKIN: Warm and dry HEENT: Normocephalic. Pupils equal round and reactive. Nose without bleeding. Airway patent. NECK: Trachea midline. Supple. CARDIOVASCULAR: Regular rate and rhythm without murmurs, gallops, or rubs. RESPIRATORY: Clear to auscultation. Breath sounds equal bilaterally. No wheezes , rales, or rhonchi. GASTROINTESTINAL: Abdomen soft, non-tender, nondistended. Bowel Sounds normoactive x4. MUSCULOSKELETAL: Extremities without clubbing, cyanosis, or edema. Right arm AV fistula graft positive thrill and bruit NEUROLOGICAL: Awake and alert. No focal neuro deficit. Moves all extremities. Normal speech. Results - Labs CBC & Chem 7: 07/16/18 14:08 07/17/18 13:59 Laboratory Results - last 24 hr 07/17/18 13:59 Sodium 144 Potassium 5.3 H Chloride 112 H Carbon Dioxide 20.4 L Anion Gap 12 BUN 45 H Creatinine 4.05 H Estimated GFR 12 L Random Glucose 102 Calcium 9.3 D Assessment and Plan - Plan 52-year-old female with a history of ESRD on HD, HTN, Breast CA s/p mastectomy presents to the emergency department for evaluation as a Phillips act after voluntary stopping her dialysis treatment for 2 weeks. Psych has seen the patient and patient is capable to make her own decisions. -Patient is awake and alert -Abnormal UA, given IV ceftriaxone. No cultures indicated. Reviewed. -Consult also palliative care for goals of care. Palliative care has seen and evaluated patient and recommends hospice care. Declines hemodialysis. Acute encephalopathy mild Abnormal UA -UA reviewed with small leukoesterase, 6 WBC, few bacteria. Culture was not indicated -Patient received rocephyn IV abx -We will DC IV antibiotics ESRD on HD. Patient has been refusing HD for 2 weeks -Palliative care consult for goals of care. Does not want any dialysis. Hospice care was consulted -Consider nephrology consult if patient agrees to HD -Declines hemodialysis and adamant about it. She states that she is okay with GFR 12. Manipulative. -Labs reviewed, consistent with end-stage renal disease H/o Breast CA s/p mastectomy DVT ppx lovenox per renal dose Code status DNR Discharge patient to home with hospice vs home Condition on discharge: Stable Renal Diet as tolerated Ad Fani activity Rx written: Continue home meds Follow-up with primary care physician, nephrology Code Status: DNR Discussed Condition With: Patient, nursing, Dr. Monroe Discharge Planning: Plan to DC home today
[2018-07-18] MEDS: Senna/Docusate Sodium 8.6/50 MG Tablet PO SCH (09:16)
[2018-07-18 12:43] VITALS: O2SAT 98
[2018-07-18] MEDS: Enoxaparin Inj 30 MG/0.3 ML Syringe SQ SCH (17:17)
[2018-07-18 17:28] VITALS: BP 181/92; PULSE 107; RESP 14; TEMP 98.7
--- NOTE | 2018-07-18 17:37 | P.PNADD ---
Addendum to Inpatient Note Reason for Addendum: Additional Documentation Additional information: Hospice nurse came in to see the patient and has been going with the process. Nurse has been [id number] this patient is unable to decide to be at hospice and keeps on changing her story. Patient was seen and was told that she is going to be discharged. Patient became more manipulative, trying to find ways to prolong the process of discharge. Hospice nurse have been in and out in her room for more than 3 times. As per nurse, they have discussed arrangements that she will go to the care center, patient would ask how about her belongings she wants her belongings to be taking care to off, nurse states that they can ask a volunteer to pepper picker all her belongings but then when it comes to signing papers she continues to refuse this has been the case every time the nurse approach her to sign paperworks. CM called to assist with DC. Discussed with Dr. Monroe. Patient declines hemodialysis. She will be discharged.
== END 2018-07-18 20:45 | disposition hospice, inpatient (51) ==
LOC: NEPJ 13:43 → NEDA 13:43 → NEPFCDU 07-17 15:55
PROVIDERS: ADMIT Hospitalist; ATTEND Hospitalist